=== PATIENT | female | born 1990 | race Two or more races ===

== ENCOUNTER 2017-09-27 08:44 | Emergency (ER) | payer SELFPAY ==
--- NOTE | 2017-09-27 09:12 | EDM.PDOC ---
ED HPI GENERAL MEDICAL PROBLEM - General Chief Complaint: Gastrointestinal Problem Stated Complaint: CHEST PAIN X 2 DAYS Time Seen by Provider: 09/27/17 08:57 Source of Information: Reports: Patient, Significant Other (Boyfriend) History Limitations: Reports: No Limitations - History of Present Illness INITIAL COMMENTS - FREE TEXT/NARRATIVE: The patient states that she developed sternal pain, sharp in character, worse with inspiration and made better with sleeping, yesterday. She took Aleve, with no improvement. She has not tried any other medications, such as an antacid. She has associated nausea, but no emesis. No shortness of breath. No diaphoresis. She has underlying anxiety, made worse with the current situation. The patient states that she had similar symptoms in 2013 when she was hospitalized with influenza. While she had a medical evaluation, she does not recall a diagnosis. The patient does not have a PCP. epigastric Pain Score (Numeric/FACES): 7 - Related Data Allergies Allergy/AdvReac Type Severity Reaction Status Date / Time Penicillins Allergy Hives Verified 09/27/17 08:54 Home Meds: Home Meds Orphenadrine [Norflex] 1 tab PO Q12H PRN #14 tab.er 09/27/17 [Rx] Past Medical History Respiratory History: Reports: Asthma Psychiatric History: Reports: Anxiety (untreated) Social & Family History - Family History Family Medical History: Noncontributory - Tobacco Use Smoking Status *Q: Current Every Day Smoker Years of Tobacco use: 10 Packs/Tins Daily: 0.7 Packs/Tins Daily Comment: Down from 2 ppd - Caffeine Use Caffeine Use: Reports: Coffee - Alcohol Use Alcohol Use History: Yes Days Per Week of Alcohol Use: 7 Number of Drinks Per Day: 4 Total Drinks Per Week: 28 Alcohol Use Frequency: Daily - Recreational Drug Use Recreational Drug Use: No - Living Situation & Occupation Living situation: Reports: Single, with Significant Other (Boyfriend) Occupation: Employed ([employer]) ED ROS GENERAL - Review of Systems Review Of Systems: ROS reveals no pertinent complaints other than HPI. ED EXAM, GENERAL - Physical Exam Exam: See Below Exam Limited By: No Limitations General Appearance: Alert, WD/WN, No Apparent Distress Eye Exam: Bilateral Eye: Normal Inspection Ears: Normal External Exam, Hearing Grossly Normal Nose: Normal Inspection, No Blood Throat/Mouth: Normal Inspection, Normal Lips, Normal Voice, No Airway Compromise Head: Atraumatic, Normocephalic Neck: Normal Inspection, Full Range of Motion Respiratory/Chest: No Respiratory Distress, Lungs Clear, Normal Breath Sounds, No Accessory Muscle Use, Other (Reproducible tenderness to palpation of the lower sternum. Reproducible pain is induced with pectoralis muscle flexion, with the patient pressing her hands together in front of her chest.) Cardiovascular: Normal Peripheral Pulses, Regular Rate, Rhythm, No Edema, No Gallop, No JVD, No Murmur, No Rub Peripheral Pulses: 4+: Radial (L), Radial (R) GI/Abdominal: Normal Bowel Sounds, Soft, Non-Tender, No Organomegaly, No Distention, No Abnormal Bruit, No Mass (Female) Exam: Deferred Rectal (Female) Exam: Deferred Back Exam: Normal Inspection, Full Range of Motion, NT Extremities: Normal Inspection, Normal Range of Motion, Non-Tender, Normal Capillary Refill, No Pedal Edema Neurological: Alert, Oriented, Normal Cognition, No Motor/Sensory Deficits Psychiatric: Normal Affect Skin Exam: Warm, Dry, Intact, Normal Color, No Rash Course - Vital Signs Last Recorded V/S: Last Vital Signs Temp 36.5 C 09/27/17 08:45 Pulse 79 09/27/17 08:45 Resp 18 09/27/17 08:45 BP 108/79 09/27/17 08:45 Pulse Ox 100 09/27/17 08:45 - Orders/Labs/Meds Orders: Active Orders 24 hr Category Date Time Status Chest 2V [CR] Stat Exams 09/27/17 09:06 Ordered - Re-Assessments/Exams Free Text/Narrative Re-Assessment/Exam: 09/27/17 09:18 Two-view chest radiograph appears to be grossly normal. Cardiac silhouette is within normal limits. No pulmonary vascular congestion. No pleural effusions. No focal infiltrate. No pneumothorax. Formal read per the Radiologist pending. 09/27/17 09:19 Based on the patient's physical examination, her chest pain appears to be musculoskeletal in etiology, likely due to a strain of the pectoralis muscle. I will start her on Norflex and e-prescribe the same. I will refer her to Dr. Ira Beal for follow-up. Departure - Departure Time of Disposition: 09:26 Disposition: Home, Self-Care 01 Condition: Good Clinical Impression: Musculoskeletal chest pain - Discharge Information Referrals: PCP,None [Primary Care Provider] - Ira Beal MD [Physician] - Forms: ED Department Discharge Additional Instructions: You were seen in the emergency room for central chest pain since 09/26/2017. Workup in the ER included a chest x-ray, which returned as normal. Based on your history and physical examination, the cause of your chest pain is musculoskeletal in etiology, likely due to a muscle spasm or strain. You have been started on the muscle relaxant Norflex. A prescription for Norflex has been sent to the [facility], [address], in [place]. Take one tablet every 12 hours, as prescribed. In addition to Norflex, you may take iljr-ilr-hndayle ibuprofen, 2-3 tablets ( 400-600 mg) every 8 hours with food OR one tablet of [id number]-zrnhpaf Aleve every 12 hours with food, as needed for discomfort. If your chest pain persists for more than 3 days, please follow-up with Dr. Ira Beal. - My Orders Last 24 Hours: My Active Orders 09/27/17 09:06 Chest 2V [CR] Stat - Assessment/Plan Last 24 Hours: My Active Orders 09/27/17 09:06 Chest 2V [CR] Stat
[2017-09-27] MEDS ORDERED: Orphenadrine 100 MG Tab.ER PO STA (09:18)
--- NOTE | 2017-09-27 11:11 | CR ---
Chest: Two views of the chest were obtained. Comparison: No prior study. Heart size and mediastinum are normal. Lungs are clear. Bony structures are unremarkable. Impression: 1. Nothing acute is identified on two-view chest x-ray. Diagnostic code #1
== END 2017-09-27 09:34 | disposition home or self-care (01) ==
LOC: JD.ED 08:44
DX: R07.89 Other chest pain (principal); F17.210 Nicotine dependence, cigarettes, uncomplicated; Z88.0 Allergy status to penicillin
CPT/HCPCS: 71046; 99284; A9270; 99283